=== PATIENT | male | born 1985 | race Asian ===

== ENCOUNTER 2017-03-28 18:43 | Emergency (ER) | payer OTHER ==
[~2017-03-28] VITALS: Ht 167.6 cm; Wt 68.0 kg
[2017-03-28 21:50] LABS: PLATELET COUNT 202 K/uL (142-355)
[2017-03-28 23:42] VITALS: BP 130/70; TEMP 98.2
== END 2017-03-28 23:46 | disposition home or self-care (01) ==
LOC: ED 18:43
DX: N34.1 Nonspecific urethritis (principal)
CPT/HCPCS: 36415; 81000; 85027; 87490; 87491; 87590; 87591; 99284

== ENCOUNTER 2017-10-13 13:27 | Emergency (ER) | payer OTHER ==
[~2017-10-13] VITALS: Ht 165.1 cm; Wt 68.0 kg
[2017-10-13 13:30] VITALS: TEMP 98.1
[2017-10-13 13:59] VITALS: BP 128/78
== END 2017-10-13 14:00 | disposition home or self-care (01) ==
LOC: ED 13:27
DX: L02.511 Cutaneous abscess of right hand (principal)
CPT/HCPCS: 96372; 99282; J0696

== ENCOUNTER 2018-05-31 05:34 | Emergency (ER) | payer OTHER ==
[~2018-05-31] VITALS: Ht 165.1 cm; Wt 68.0 kg
[2018-05-31 07:39] LABS: PLATELET COUNT 269 K/uL (142-355)
[2018-05-31 07:48] LABS: POTASSIUM 3.9 mmol/L (3.6-5.2)
[2018-05-31 08:15] VITALS: BP 125/70; TEMP 98
== END 2018-05-31 08:16 | disposition home or self-care (01) ==
LOC: ED 05:34
PROVIDERS: Emergency Medicine
DX: K59.00 Constipation, unspecified (principal)
CPT/HCPCS: 36415; 80053; 81000; 85027; 99283

== ENCOUNTER 2020-09-01 21:54 | Emergency (ER) | payer OTHER ==
[~2020-09-01] VITALS: Ht 165.1 cm; Wt 68.0 kg
[2020-09-01 23:02] VITALS: BP 142/81; TEMP 98.3
== END 2020-09-01 23:02 | disposition home or self-care (01) ==
LOC: ED 21:54
DX: K64.5 Perianal venous thrombosis (principal)
CPT/HCPCS: 96372; 99282; J1885